=== PATIENT | male | born 1935 | race Caucasian/White ===

== ENCOUNTER 2017-08-04 06:38 | Day surgery (SDC) | payer MEDICARE, OTHER ==
[~2017-08-04 06:38] MED LIST: Dextrose 5%-0.45% NaCl 1,000 ML IV SCH; Midazolam 1 MG/ML 2 ML SDV ONE; Sodium Chloride 0.9% 10 ML Syringe FLUSH PRN; fentaNYL 100 MCG/2 ML SDV ONE
[2017-08-04] MEDS ORDERED: Midazolam 1 MG/ML 2 ML SDV IV ONE ×2 (06:39→08:18)
[2017-08-04] MEDS ORDERED: fentaNYL 100 MCG/2 ML SDV IV ONE ×2 (06:39→08:17)
[2017-08-04 11:25] VITALS: BP 119/52
--- NOTE | 2017-08-04 12:40 | OR ---
DATE: 08/04/2017 PROCEDURE: Esophagogastroduodenoscopy and multiple pinch biopsies. INSTRUMENT USED: GIF-H180 Olympus video panendoscope. PREMEDICATIONS: No oral topical anesthesia used, Fentanyl 100 mcg intravenous, Versed 1 mg intravenous. The procedure was done under pulse oximetry, BP recording, and cardiac cath technician. INDICATION: The patient with persistent upper abdominal pain, unexplained, and not responsive to medical measures. Esophagogastroduodenoscopy is performed for detection of any active erosive lesions, Gross esophagus and/or malignancy also under consideration, H. pylori status to be determined, endoscopic hemostasis therapy if needed. DESCRIPTION OF PROCEDURE: The scope was passed with ease. Adequate visualization of the esophagus was made from proximal to distal areas. No upper esophageal lesions identified. No distal esophageal stricture. No uphill or downhill esophageal varices. No Sherry-Stein tear. No evidence of erosive esophagitis by Cowlitz criteria. No esophageal polyp or tumor mass identified. Z-line was seen at around 40 cm distal to the oral verge, configuration consistent with grade 1 by ZAP classification. No proximal gastric varices noted. Gastric fundus examination by retroflexion showed no polypoid lesions. No gastric ulcer, malignant mass, or vascular ectasia identified. Duodenal bulb showed no ulcer. Visualized second part of the duodenum was unremarkable. Multiple pinch biopsies were taken from the gastric antrum and proximal body and sent for PyloriTek test for H. pylori, and if negative in an hour, the tissue is to be sent for histopathology. No bleeding was noted from any of the visualized areas at the completion of examination. Photographs were taken of the duodenal bulb, gastric antrum, fundus, and distal esophagus. IMPRESSION: Normal study. The patient tolerated the procedure well. [facility] /[id number]
== END 2017-08-04 10:17 | disposition home or self-care (01) ==
LOC: DL.ENDO 06:38
PROVIDERS: ATTEND Internal Medicine Gastroenterology
DX: K29.50 Unspecified chronic gastritis without bleeding (principal); K31.89 Other diseases of stomach and duodenum; I10 Essential (primary) hypertension; E11.9 Type 2 diabetes mellitus without complications; E78.5 Hyperlipidemia, unspecified; I25.810 Atherosclerosis of coronary artery bypass graft(s) without angina pectoris; E55.9 Vitamin D deficiency, unspecified; N40.0 Benign prostatic hyperplasia without lower urinary tract symptoms; Z88.0 Allergy status to penicillin; Z88.2 Allergy status to sulfonamides; Z88.8 Allergy status to other drugs, medicaments and biological substances
CPT/HCPCS: 43239; 87077; J7042; 88305; 88342; J2250; J3010